=== PATIENT | female | born 1985 | race Caucasian/White ===

== ENCOUNTER 2025-08-07 09:32 | Emergency (ER) | payer OTHER ==
[~2025-08-07] VITALS: Ht 160 cm; Wt 68.0 kg
[2025-08-07] MEDS ORDERED: CefTRIAXone 1000 MG Vial IM ONE ×2 (14:30→15:00)
[2025-08-07] MEDS ORDERED: METR500 PO (14:31)
[2025-08-07 14:37] LABS: Anion Gap 9.0 mmol/L (3-11); Blood Urea Nitrogen 7.0 mg/dL (8-24); CO2, Blood 24.0 mmol/L (21-32); Calcium, Blood 8.9 mg/dL (8.5-10.1); Chloride, Blood 105.0 mmol/L (98-108); Creatinine, Blood 0.91 mg/dL (0.40-1.00); Glucose, Blood 97.0 mg/dL (70-99); Potassium, Blood 3.9 mmol/L (3.5-5.5); Sodium, Blood 134.0 mmol/L (136-145)
[2025-08-07 14:44] LABS: Source, Urine Clean Catch
[2025-08-07 15:13] LABS: Bilirubin, Urine Neg (Neg); Glucose Qualitative, Urine Neg (Neg); Ketones, Urine 3+ (Neg); Leukocyte Esterase, Urine Neg (Neg); Protein, Urine 1+ (Neg); Specific Gravity, Urine 1.010 (1.003-1.022); Urobilinogen, Urine NORM (Normal)
[2025-08-07 15:30] LABS: Color, Urine Pale Yellow (P-Yellow)
[2025-08-07 15:31] LABS: White Blood Cells, Urine 0-2 /hpf (0-5)
== END 2025-08-07 16:16 | disposition home or self-care (01) ==
LOC: EDBD 09:32 → ER 09:32
PROVIDERS: Student in an Organized Health Care Education/Training Program
DX: T76.21XA Adult sexual abuse, suspected, initial encounter (principal); Z88.8 Allergy status to other drugs, medicaments and biological substances
CPT/HCPCS: 70450; 70491; 80048; 81001; 81025; 84703; 96372-59; 99285-25; A9270; J0696; Q9967